=== PATIENT | male | born 1955 | race African-American/Black ===

== ENCOUNTER 2021-11-23 15:12 | Inpatient (IN) | payer OTHER, BC ==
[2021-11-23] MEDS ORDERED: ACETAMINOPHEN 325 MG TABLET (FP) PO PRN ×3 (19:33→20:05)
[2021-11-23] MEDS ORDERED: BISMUTH SUBSALICYLATE 524 MG/30 ML PO PRN ×2 (19:33→20:05)
[2021-11-23] MEDS ORDERED: NICOTINE 10 MG CARTRIDGE (INHALER) IH PRN ×2 (19:33→20:05)
[2021-11-23] MEDS ORDERED: METHOCARBAMOL 500 MG TABLET PO PRN ×2 (19:33→20:05)
[2021-11-23] MEDS ORDERED: BENZOCAINE/MENTHOL (CHLORASEPTIC ) LOZENGE MM PRN ×2 (19:33→20:05)
[2021-11-23] MEDS ORDERED: MAGNESIUM HYDROX 2400MG/30ML ORAL SUSPENSION 30 ML CUP PO PRN ×2 (19:33→20:05)
[2021-11-23] MEDS ORDERED: MAG HYDROX/AL HYDROX/SIMETH 30 ML UNIT-DOSE CUP PO PRN ×2 (19:33→20:05)
[2021-11-23] MEDS ORDERED: chlordiazePOXIDE HCL 25 MG CAPSULE PO PRN ×2 (19:33→20:10)
[2021-11-23] MEDS ORDERED: IBUPROFEN 600 MG TABLET (FP) PO PRN (19:33)
[2021-11-23] MEDS ORDERED: IBUPROFEN 400 MG TABLET (FP) PO PRN (19:33)
[2021-11-23] MEDS ORDERED: MAGNESIUM CITRATE 300 ML BOTTLE PO PRN ×2 (19:33→20:05)
[2021-11-23] MEDS ORDERED: DICYCLOMINE HCL 10 MG CAPSULE PO PRN ×2 (19:33→20:05)
[2021-11-23] MEDS ORDERED: chlordiazePOXIDE HCL 25 MG CAPSULE PO ONE ×2 (19:33→20:10)
[2021-11-23] MEDS ORDERED: ONDANSETRON *ODT* 4 MG TABLET SL PRN ×2 (19:33→20:05)
[2021-11-23] MEDS ORDERED: NICOTINE POLACRILEX 2 MG GUM BUC PRN ×2 (19:33→20:05)
[2021-11-23] MEDS ORDERED: LOPERAMIDE HCL 2 MG CAPSULE PO PRN ×2 (19:33→20:05)
[2021-11-23] MEDS ORDERED: PRENATAL VITAMINS W/ FOLIC ACID TABLET (FP) PO SCH (19:45)
[2021-11-23 19:47] VITALS: BMI 24.9
[2021-11-23] MEDS: PRENATAL VITAMINS W/ FOLIC ACID TABLET (FP) PO SCH (20:48)
[2021-11-23] MEDS ORDERED: MELATONIN 5 MG TABLETS PO SCH (22:00)
[2021-11-23] MEDS ORDERED: hydrOXYzine PAMOATE 25 MG CAPSULE (FP) PO SCH (22:00)
[2021-11-23] MEDS ORDERED: THIAMINE HCL 100 MG TABLET (FP) PO SCH (22:00)
[2021-11-23] MEDS ORDERED: chlordiazePOXIDE HCL 25 MG CAPSULE PO SCH (23:00)
[2021-11-23] MEDS: chlordiazePOXIDE HCL 25 MG CAPSULE PO SCH (23:15)
[2021-11-23] MEDS: MELATONIN 5 MG TABLETS PO SCH (23:16)
[2021-11-23] MEDS: THIAMINE HCL 100 MG TABLET (FP) PO SCH (23:16)
[2021-11-23] MEDS: hydrOXYzine PAMOATE 25 MG CAPSULE (FP) PO SCH (23:16)
[2021-11-24] MEDS: chlordiazePOXIDE HCL 25 MG CAPSULE PO SCH ×4 (06:19→22:26)
[2021-11-24] MEDS: hydrOXYzine PAMOATE 25 MG CAPSULE (FP) PO SCH ×5 (06:20→22:25)
[2021-11-24] MEDS ORDERED: NICOTINE 7 MG/24 HOURS TOPICAL PATCH TD SCH (10:00)
[2021-11-24 10:29] LABS: ALBUMIN 2.6 g/dl (3.4-5.0); CALCIUM 8.5 mg/dL (8.5-10.1)
[2021-11-24 10:30] LABS: BLOOD UREA NITROGEN 13.6 mg/dL (7-18)
[2021-11-24 10:33] LABS: CREATININE 0.9 mg/dL (0.55-1.3)
[2021-11-24 10:34] LABS: BILIRUBIN,TOTAL 1.3 mg/dL (0.2-1); TOT PROT 6.3 g/dl (6.4-8.2)
[2021-11-24] MEDS: PRENATAL VITAMINS W/ FOLIC ACID TABLET (FP) PO SCH (10:42)
[2021-11-24] MEDS: NICOTINE 7 MG/24 HOURS TOPICAL PATCH TD SCH (10:43)
[2021-11-24 10:49] LABS: HEMOGLOBIN 10.9 GM/dL (11.7-16.9); MCHC 32.5 g/dl (32.0-35.9)
[2021-11-24 10:51] LABS: HEMATOCRIT 33.5 % (35.4-49); MEAN CELL VOLUME 79.9 fl (80-96); MEAN PLT VOLUME 8.5 fl (7.5-11.1); PLATELET COUNT 228 10^3/uL (134-434); WHITE BLOOD COUNT 6.4 K/mm3 (4.0-10.0)
[2021-11-24] MEDS ORDERED: POTASSIUM CHLORIDE ORAL LIQUID 20 MEQ/15 ML PO ONE ×2 (11:30→15:30)
[2021-11-24] MEDS: IBUPROFEN 600 MG TABLET (FP) PO PRN ×2 (15:52→22:26)
[2021-11-24] MEDS: MELATONIN 5 MG TABLETS PO SCH (22:25)
[2021-11-24] MEDS: THIAMINE HCL 100 MG TABLET (FP) PO SCH (22:26)
[2021-11-25] MEDS ORDERED: chlordiazePOXIDE HCL 25 MG CAPSULE PO SCH (05:00)
[2021-11-25] MEDS: chlordiazePOXIDE HCL 25 MG CAPSULE PO SCH ×4 (05:35→22:52)
[2021-11-25] MEDS: hydrOXYzine PAMOATE 25 MG CAPSULE (FP) PO SCH ×6 (05:36→23:16)
[2021-11-25] MEDS: NICOTINE 7 MG/24 HOURS TOPICAL PATCH TD SCH (09:42)
[2021-11-25] MEDS: PRENATAL VITAMINS W/ FOLIC ACID TABLET (FP) PO SCH (09:43)
[2021-11-25] MEDS: IBUPROFEN 600 MG TABLET (FP) PO PRN (10:01)
[2021-11-25] MEDS: MELATONIN 5 MG TABLETS PO SCH (23:16)
[2021-11-25] MEDS: THIAMINE HCL 100 MG TABLET (FP) PO SCH (23:18)
[2021-11-26] MEDS ORDERED: chlordiazePOXIDE HCL 10 MG CAPSULE PO PRN ×2
[2021-11-26] MEDS ORDERED: chlordiazePOXIDE HCL 10 MG CAPSULE PO SCH (05:00)
[2021-11-26] MEDS: chlordiazePOXIDE HCL 10 MG CAPSULE PO SCH ×4 (08:07→22:46)
[2021-11-26] MEDS: hydrOXYzine PAMOATE 25 MG CAPSULE (FP) PO SCH ×5 (08:07→23:15)
[2021-11-26] MEDS: PRENATAL VITAMINS W/ FOLIC ACID TABLET (FP) PO SCH (10:39)
[2021-11-26] MEDS: NICOTINE 7 MG/24 HOURS TOPICAL PATCH TD SCH (10:39)
[2021-11-26] MEDS: ACETAMINOPHEN 325 MG TABLET (FP) PO PRN (22:49)
[2021-11-26] MEDS: THIAMINE HCL 100 MG TABLET (FP) PO SCH (23:15)
[2021-11-26] MEDS: MELATONIN 5 MG TABLETS PO SCH (23:15)
[2021-11-27] MEDS ORDERED: chlordiazePOXIDE HCL 10 MG CAPSULE PO SCH (05:00)
[2021-11-27] MEDS: hydrOXYzine PAMOATE 25 MG CAPSULE (FP) PO SCH ×4 (06:10→18:45)
[2021-11-27] MEDS: chlordiazePOXIDE HCL 10 MG CAPSULE PO SCH ×2 (07:20→18:45)
[2021-11-27] MEDS: PRENATAL VITAMINS W/ FOLIC ACID TABLET (FP) PO SCH (10:57)
[2021-11-27] MEDS: NICOTINE 7 MG/24 HOURS TOPICAL PATCH TD SCH (10:58)
[2021-11-28] MEDS: MELATONIN 5 MG TABLETS PO SCH ×2 (00:09→22:47)
[2021-11-28] MEDS: THIAMINE HCL 100 MG TABLET (FP) PO SCH ×2 (00:09→22:47)
[2021-11-28] MEDS: hydrOXYzine PAMOATE 25 MG CAPSULE (FP) PO SCH ×6 (00:09→22:47)
[2021-11-28] MEDS ORDERED: chlordiazePOXIDE HCL 10 MG CAPSULE PO ONE ×2 (05:00)
[2021-11-28] MEDS: NICOTINE 7 MG/24 HOURS TOPICAL PATCH TD SCH (10:47)
[2021-11-28] MEDS: PRENATAL VITAMINS W/ FOLIC ACID TABLET (FP) PO SCH (10:48)
[2021-11-29] MEDS: hydrOXYzine PAMOATE 25 MG CAPSULE (FP) PO SCH ×4 (07:46→19:04)
[2021-11-29] MEDS: NICOTINE 7 MG/24 HOURS TOPICAL PATCH TD SCH (10:42)
[2021-11-29] MEDS: PRENATAL VITAMINS W/ FOLIC ACID TABLET (FP) PO SCH (10:42)
[2021-11-29] MEDS: IBUPROFEN 600 MG TABLET (FP) PO PRN (10:44)
[2021-11-29] MEDS: MELATONIN 5 MG TABLETS PO SCH (23:28)
[2021-11-29] MEDS: THIAMINE HCL 100 MG TABLET (FP) PO SCH (23:28)
[2021-11-30] MEDS: PRENATAL VITAMINS W/ FOLIC ACID TABLET (FP) PO SCH (10:17)
[2021-11-30] MEDS: NICOTINE 7 MG/24 HOURS TOPICAL PATCH TD SCH (10:17)
[2021-11-30] MEDS: IBUPROFEN 600 MG TABLET (FP) PO PRN (11:46)
[2021-11-30] MEDS: MELATONIN 5 MG TABLETS PO SCH (23:18)
[2021-11-30] MEDS: THIAMINE HCL 100 MG TABLET (FP) PO SCH (23:18)
[2021-12-01] MEDS: NICOTINE 7 MG/24 HOURS TOPICAL PATCH TD SCH (10:37)
[2021-12-01] MEDS: PRENATAL VITAMINS W/ FOLIC ACID TABLET (FP) PO SCH (10:54)
[2021-12-01] MEDS: ACETAMINOPHEN 325 MG TABLET (FP) PO PRN (18:37)
[2021-12-01] MEDS: MELATONIN 5 MG TABLETS PO SCH (22:50)
[2021-12-01] MEDS: THIAMINE HCL 100 MG TABLET (FP) PO SCH (22:50)
[2021-12-02] MEDS: PRENATAL VITAMINS W/ FOLIC ACID TABLET (FP) PO SCH (10:26)
[2021-12-02] MEDS: NICOTINE 7 MG/24 HOURS TOPICAL PATCH TD SCH (10:27)
[2021-12-02] MEDS: IBUPROFEN 600 MG TABLET (FP) PO PRN (10:48)
[2021-12-02] MEDS: THIAMINE HCL 100 MG TABLET (FP) PO SCH (22:50)
[2021-12-02] MEDS: MELATONIN 5 MG TABLETS PO SCH (22:51)
[2021-12-03] MEDS: NICOTINE 7 MG/24 HOURS TOPICAL PATCH TD SCH (10:09)
[2021-12-03] MEDS: PRENATAL VITAMINS W/ FOLIC ACID TABLET (FP) PO SCH (10:09)
[2021-12-03] MEDS: IBUPROFEN 600 MG TABLET (FP) PO PRN (10:10)
[2021-12-03] MEDS: THIAMINE HCL 100 MG TABLET (FP) PO SCH (23:22)
[2021-12-03] MEDS: MELATONIN 5 MG TABLETS PO SCH (23:22)
[2021-12-04] MEDS: PRENATAL VITAMINS W/ FOLIC ACID TABLET (FP) PO SCH (10:07)
[2021-12-04] MEDS: IBUPROFEN 600 MG TABLET (FP) PO PRN (10:07)
[2021-12-04] MEDS: NICOTINE 7 MG/24 HOURS TOPICAL PATCH TD SCH (10:08)
[2021-12-04] MEDS: MELATONIN 5 MG TABLETS PO SCH (22:13)
[2021-12-04] MEDS: THIAMINE HCL 100 MG TABLET (FP) PO SCH (22:13)
[2021-12-05] MEDS: IBUPROFEN 600 MG TABLET (FP) PO PRN (10:10)
[2021-12-05] MEDS: PRENATAL VITAMINS W/ FOLIC ACID TABLET (FP) PO SCH (10:10)
[2021-12-05] MEDS: NICOTINE 7 MG/24 HOURS TOPICAL PATCH TD SCH (10:11)
[2021-12-05] MEDS: MELATONIN 5 MG TABLETS PO SCH (22:09)
[2021-12-05] MEDS: THIAMINE HCL 100 MG TABLET (FP) PO SCH (22:09)
[2021-12-05] MEDS: IBUPROFEN 400 MG TABLET (FP) PO PRN (22:10)
[2021-12-06] MEDS: NICOTINE 7 MG/24 HOURS TOPICAL PATCH TD SCH (10:24)
[2021-12-06] MEDS: PRENATAL VITAMINS W/ FOLIC ACID TABLET (FP) PO SCH (10:24)
[2021-12-06] MEDS: IBUPROFEN 400 MG TABLET (FP) PO PRN (10:25)
[2021-12-06] MEDS: THIAMINE HCL 100 MG TABLET (FP) PO SCH (22:22)
[2021-12-06] MEDS: MELATONIN 5 MG TABLETS PO SCH (22:22)
[2021-12-07] MEDS: PRENATAL VITAMINS W/ FOLIC ACID TABLET (FP) PO SCH (10:44)
[2021-12-07] MEDS: ACETAMINOPHEN 325 MG TABLET (FP) PO PRN ×2 (10:45→22:12)
[2021-12-07] MEDS: NICOTINE 7 MG/24 HOURS TOPICAL PATCH TD SCH (10:46)
[2021-12-07] MEDS: MELATONIN 5 MG TABLETS PO SCH (22:11)
[2021-12-07] MEDS: THIAMINE HCL 100 MG TABLET (FP) PO SCH (22:11)
[2021-12-08] MEDS: IBUPROFEN 600 MG TABLET (FP) PO PRN (10:12)
[2021-12-08] MEDS: PRENATAL VITAMINS W/ FOLIC ACID TABLET (FP) PO SCH (10:13)
[2021-12-08] MEDS: NICOTINE 7 MG/24 HOURS TOPICAL PATCH TD SCH (10:14)
[2021-12-08 18:25] LABS: URINE APPEARANCE CLEAR; URINE BILIRUBIN NEGATIVE (NEGATIVE); URINE COLOR YELLOW; URINE GLUCOSE (UA) NEGATIVE (NEGATIVE); URINE KETONE NEGATIVE (NEGATIVE); URINE LEUK ESTERASE NEGATIVE (NEGATIVE); URINE NITRITE NEGATIVE (NEGATIVE); URINE PROTEIN NEGATIVE (NEGATIVE); URINE UROBILINOGEN 0.2 mg/dL (0.2-1.0)
[2021-12-08] MEDS: THIAMINE HCL 100 MG TABLET (FP) PO SCH (23:08)
[2021-12-08] MEDS: MELATONIN 5 MG TABLETS PO SCH (23:08)
[2021-12-09] MEDS: PRENATAL VITAMINS W/ FOLIC ACID TABLET (FP) PO SCH (10:19)
[2021-12-09] MEDS: IBUPROFEN 600 MG TABLET (FP) PO PRN (10:19)
[2021-12-09] MEDS: NICOTINE 7 MG/24 HOURS TOPICAL PATCH TD SCH (10:20)
[2021-12-09] MEDS: ACETAMINOPHEN 325 MG TABLET (FP) PO PRN (20:19)
[2021-12-09] MEDS: MELATONIN 5 MG TABLETS PO SCH (22:24)
[2021-12-09] MEDS: THIAMINE HCL 100 MG TABLET (FP) PO SCH (22:24)
[2021-12-10] MEDS: NICOTINE 7 MG/24 HOURS TOPICAL PATCH TD SCH (10:13)
[2021-12-10] MEDS: PRENATAL VITAMINS W/ FOLIC ACID TABLET (FP) PO SCH (10:13)
[2021-12-10] MEDS: MELATONIN 5 MG TABLETS PO SCH (23:45)
[2021-12-10] MEDS: THIAMINE HCL 100 MG TABLET (FP) PO SCH (23:46)
[2021-12-11] MEDS: PRENATAL VITAMINS W/ FOLIC ACID TABLET (FP) PO SCH (10:09)
[2021-12-11] MEDS: NICOTINE 7 MG/24 HOURS TOPICAL PATCH TD SCH (10:11)
[2021-12-11] MEDS: IBUPROFEN 400 MG TABLET (FP) PO PRN (20:38)
[2021-12-11] MEDS: THIAMINE HCL 100 MG TABLET (FP) PO SCH (23:52)
[2021-12-11] MEDS: MELATONIN 5 MG TABLETS PO SCH (23:52)
[2021-12-12] MEDS: PRENATAL VITAMINS W/ FOLIC ACID TABLET (FP) PO SCH (10:11)
[2021-12-12] MEDS: NICOTINE 7 MG/24 HOURS TOPICAL PATCH TD SCH (10:11)
[2021-12-12] MEDS: ACETAMINOPHEN 325 MG TABLET (FP) PO PRN (10:11)
[2021-12-12] MEDS: THIAMINE HCL 100 MG TABLET (FP) PO SCH (22:36)
[2021-12-12] MEDS: MELATONIN 5 MG TABLETS PO SCH (22:36)
[2021-12-13] MEDS: ACETAMINOPHEN 325 MG TABLET (FP) PO PRN (10:22)
[2021-12-13] MEDS: PRENATAL VITAMINS W/ FOLIC ACID TABLET (FP) PO SCH (10:22)
[2021-12-13] MEDS: NICOTINE 7 MG/24 HOURS TOPICAL PATCH TD SCH (10:23)
[2021-12-13] MEDS: THIAMINE HCL 100 MG TABLET (FP) PO SCH (23:46)
[2021-12-13] MEDS: MELATONIN 5 MG TABLETS PO SCH (23:46)
[2021-12-14] MEDS: IBUPROFEN 600 MG TABLET (FP) PO PRN ×2 (10:15→22:39)
[2021-12-14] MEDS: PRENATAL VITAMINS W/ FOLIC ACID TABLET (FP) PO SCH (10:15)
[2021-12-14] MEDS: NICOTINE 7 MG/24 HOURS TOPICAL PATCH TD SCH (10:15)
[2021-12-14] MEDS: THIAMINE HCL 100 MG TABLET (FP) PO SCH (22:39)
[2021-12-14] MEDS: MELATONIN 5 MG TABLETS PO SCH (22:40)
[2021-12-15] MEDS: PRENATAL VITAMINS W/ FOLIC ACID TABLET (FP) PO SCH (10:11)
[2021-12-15] MEDS: NICOTINE 7 MG/24 HOURS TOPICAL PATCH TD SCH (10:11)
[2021-12-15] MEDS: THIAMINE HCL 100 MG TABLET (FP) PO SCH (22:36)
[2021-12-15] MEDS: MELATONIN 5 MG TABLETS PO SCH (22:36)
[2021-12-16] MEDS: IBUPROFEN 600 MG TABLET (FP) PO PRN (10:52)
[2021-12-16] MEDS: PRENATAL VITAMINS W/ FOLIC ACID TABLET (FP) PO SCH (10:52)
[2021-12-16] MEDS: NICOTINE 7 MG/24 HOURS TOPICAL PATCH TD SCH (10:54)
[2021-12-16] MEDS: MELATONIN 5 MG TABLETS PO SCH (22:39)
[2021-12-16] MEDS: THIAMINE HCL 100 MG TABLET (FP) PO SCH (22:39)
[2021-12-17] MEDS: NICOTINE 7 MG/24 HOURS TOPICAL PATCH TD SCH ×2 (09:42→10:10)
[2021-12-17] MEDS: PRENATAL VITAMINS W/ FOLIC ACID TABLET (FP) PO SCH (09:42)
[2021-12-17] MEDS: ACETAMINOPHEN 325 MG TABLET (FP) PO PRN (14:40)
[2021-12-17] MEDS: MELATONIN 5 MG TABLETS PO SCH (22:23)
[2021-12-17] MEDS: THIAMINE HCL 100 MG TABLET (FP) PO SCH (22:23)
[2021-12-17] MEDS: TOBRAMYCIN 0.3% OPHTH SOLN 5 ML BOTTLE OU SCH (22:24)
[2021-12-18] MEDS: TOBRAMYCIN 0.3% OPHTH SOLN 5 ML BOTTLE OU SCH ×3 (07:18→22:55)
[2021-12-18] MEDS: PRENATAL VITAMINS W/ FOLIC ACID TABLET (FP) PO SCH (09:30)
[2021-12-18] MEDS: NICOTINE 7 MG/24 HOURS TOPICAL PATCH TD SCH (09:30)
[2021-12-18] MEDS: ACETAMINOPHEN 325 MG TABLET (FP) PO PRN (09:31)
[2021-12-18] MEDS: MELATONIN 5 MG TABLETS PO SCH (22:55)
[2021-12-18] MEDS: THIAMINE HCL 100 MG TABLET (FP) PO SCH (22:55)
[2021-12-19] MEDS: TOBRAMYCIN 0.3% OPHTH SOLN 5 ML BOTTLE OU SCH ×3 (06:07→22:20)
[2021-12-19] MEDS: IBUPROFEN 400 MG TABLET (FP) PO PRN (10:25)
[2021-12-19] MEDS: NICOTINE 7 MG/24 HOURS TOPICAL PATCH TD SCH (10:25)
[2021-12-19] MEDS: PRENATAL VITAMINS W/ FOLIC ACID TABLET (FP) PO SCH (10:25)
[2021-12-19] MEDS: MELATONIN 5 MG TABLETS PO SCH (22:19)
[2021-12-19] MEDS: THIAMINE HCL 100 MG TABLET (FP) PO SCH (22:19)
[2021-12-20] MEDS: TOBRAMYCIN 0.3% OPHTH SOLN 5 ML BOTTLE OU SCH ×3 (06:10→23:01)
[2021-12-20] MEDS: IBUPROFEN 600 MG TABLET (FP) PO PRN (10:27)
[2021-12-20] MEDS: PRENATAL VITAMINS W/ FOLIC ACID TABLET (FP) PO SCH (10:27)
[2021-12-20] MEDS: NICOTINE 7 MG/24 HOURS TOPICAL PATCH TD SCH (10:27)
[2021-12-20] MEDS: MELATONIN 5 MG TABLETS PO SCH (23:01)
[2021-12-20] MEDS: THIAMINE HCL 100 MG TABLET (FP) PO SCH (23:01)
[2021-12-21] MEDS: TOBRAMYCIN 0.3% OPHTH SOLN 5 ML BOTTLE OU SCH ×3 (06:00→22:39)
[2021-12-21] MEDS: PRENATAL VITAMINS W/ FOLIC ACID TABLET (FP) PO SCH (11:00)
[2021-12-21] MEDS: ACETAMINOPHEN 325 MG TABLET (FP) PO PRN (11:01)
[2021-12-21] MEDS: NICOTINE 7 MG/24 HOURS TOPICAL PATCH TD SCH (11:02)
[2021-12-21] MEDS: MELATONIN 5 MG TABLETS PO SCH (22:38)
[2021-12-21] MEDS: THIAMINE HCL 100 MG TABLET (FP) PO SCH (22:38)
[2021-12-22] MEDS: TOBRAMYCIN 0.3% OPHTH SOLN 5 ML BOTTLE OU SCH ×3 (05:52→23:14)
[2021-12-22] MEDS: ACETAMINOPHEN 325 MG TABLET (FP) PO PRN (09:29)
[2021-12-22] MEDS: NICOTINE 7 MG/24 HOURS TOPICAL PATCH TD SCH (09:29)
[2021-12-22] MEDS: PRENATAL VITAMINS W/ FOLIC ACID TABLET (FP) PO SCH (09:29)
[2021-12-22] MEDS: MELATONIN 5 MG TABLETS PO SCH (23:14)
[2021-12-22] MEDS: THIAMINE HCL 100 MG TABLET (FP) PO SCH (23:14)
[2021-12-23] MEDS: TOBRAMYCIN 0.3% OPHTH SOLN 5 ML BOTTLE OU SCH ×3 (05:53→23:18)
[2021-12-23] MEDS: NICOTINE 7 MG/24 HOURS TOPICAL PATCH TD SCH (10:24)
[2021-12-23] MEDS: PRENATAL VITAMINS W/ FOLIC ACID TABLET (FP) PO SCH (10:24)
[2021-12-23] MEDS: IBUPROFEN 600 MG TABLET (FP) PO PRN (10:24)
[2021-12-23 15:37] LABS: BLOOD UREA NITROGEN 10.2 mg/dL (7-18); CALCIUM 8.9 mg/dL (8.5-10.1)
[2021-12-23 15:38] LABS: ALBUMIN 3.3 g/dl (3.4-5.0)
[2021-12-23 15:41] LABS: CREATININE 0.9 mg/dL (0.55-1.3)
[2021-12-23 15:42] LABS: BILIRUBIN,TOTAL 0.6 mg/dL (0.2-1); TOT PROT 7.4 g/dl (6.4-8.2)
[2021-12-23] MEDS: THIAMINE HCL 100 MG TABLET (FP) PO SCH (23:18)
[2021-12-23] MEDS: MELATONIN 5 MG TABLETS PO SCH (23:27)
[2021-12-24] MEDS: TOBRAMYCIN 0.3% OPHTH SOLN 5 ML BOTTLE OU SCH ×3 (06:06→23:22)
[2021-12-24] MEDS: PRENATAL VITAMINS W/ FOLIC ACID TABLET (FP) PO SCH (10:54)
[2021-12-24] MEDS: ACETAMINOPHEN 325 MG TABLET (FP) PO PRN (10:55)
[2021-12-24] MEDS: NICOTINE 7 MG/24 HOURS TOPICAL PATCH TD SCH (10:56)
[2021-12-24] MEDS: THIAMINE HCL 100 MG TABLET (FP) PO SCH (22:48)
[2021-12-24] MEDS: MELATONIN 5 MG TABLETS PO SCH (22:48)
[2021-12-25] MEDS: TOBRAMYCIN 0.3% OPHTH SOLN 5 ML BOTTLE OU SCH ×3 (06:19→23:32)
[2021-12-25] MEDS: PRENATAL VITAMINS W/ FOLIC ACID TABLET (FP) PO SCH (10:15)
[2021-12-25] MEDS: IBUPROFEN 600 MG TABLET (FP) PO PRN (10:15)
[2021-12-25] MEDS: NICOTINE 7 MG/24 HOURS TOPICAL PATCH TD SCH (10:16)
[2021-12-25] MEDS: THIAMINE HCL 100 MG TABLET (FP) PO SCH (23:32)
[2021-12-25] MEDS: MELATONIN 5 MG TABLETS PO SCH (23:32)
[2021-12-26] MEDS: TOBRAMYCIN 0.3% OPHTH SOLN 5 ML BOTTLE OU SCH ×3 (06:20→23:22)
[2021-12-26] MEDS: PRENATAL VITAMINS W/ FOLIC ACID TABLET (FP) PO SCH (10:21)
[2021-12-26] MEDS: ACETAMINOPHEN 325 MG TABLET (FP) PO PRN (10:21)
[2021-12-26] MEDS: NICOTINE 7 MG/24 HOURS TOPICAL PATCH TD SCH (10:21)
[2021-12-26] MEDS: MELATONIN 5 MG TABLETS PO SCH (23:22)
[2021-12-26] MEDS: THIAMINE HCL 100 MG TABLET (FP) PO SCH (23:22)
[2021-12-27] MEDS: TOBRAMYCIN 0.3% OPHTH SOLN 5 ML BOTTLE OU SCH ×3 (07:06→22:46)
[2021-12-27] MEDS: IBUPROFEN 600 MG TABLET (FP) PO PRN (10:22)
[2021-12-27] MEDS: PRENATAL VITAMINS W/ FOLIC ACID TABLET (FP) PO SCH (10:23)
[2021-12-27] MEDS: NICOTINE 7 MG/24 HOURS TOPICAL PATCH TD SCH (10:23)
[2021-12-27] MEDS: MELATONIN 5 MG TABLETS PO SCH (22:45)
[2021-12-27] MEDS: THIAMINE HCL 100 MG TABLET (FP) PO SCH (22:45)
[2021-12-28] MEDS: TOBRAMYCIN 0.3% OPHTH SOLN 5 ML BOTTLE OU SCH ×3 (06:38→22:06)
[2021-12-28] MEDS: IBUPROFEN 600 MG TABLET (FP) PO PRN (10:28)
[2021-12-28] MEDS: PRENATAL VITAMINS W/ FOLIC ACID TABLET (FP) PO SCH (10:28)
[2021-12-28] MEDS: NICOTINE 7 MG/24 HOURS TOPICAL PATCH TD SCH (10:29)
[2021-12-28] MEDS: MELATONIN 5 MG TABLETS PO SCH (22:06)
[2021-12-28] MEDS: THIAMINE HCL 100 MG TABLET (FP) PO SCH (22:06)
[2021-12-29] MEDS: TOBRAMYCIN 0.3% OPHTH SOLN 5 ML BOTTLE OU SCH ×2 (06:02→22:35)
[2021-12-29] MEDS: IBUPROFEN 600 MG TABLET (FP) PO PRN (10:22)
[2021-12-29] MEDS: PRENATAL VITAMINS W/ FOLIC ACID TABLET (FP) PO SCH (10:22)
[2021-12-29] MEDS: NICOTINE 7 MG/24 HOURS TOPICAL PATCH TD SCH (10:23)
[2021-12-29] MEDS: MELATONIN 5 MG TABLETS PO SCH (22:35)
[2021-12-29] MEDS: THIAMINE HCL 100 MG TABLET (FP) PO SCH (22:35)
[2021-12-30 01:15] VITALS: BP 134/78; PULSE 80; TEMP 97.7
[2021-12-30 01:22] VITALS: RESP 16
== END 2021-12-30 01:12 | DRG 897 ==
LOC: YASAS 15:12 → Y6N 20:02 → UNDODISIN 12-29 10:26
PROVIDERS: ADMIT Allergy & Immunology; ATTEND Surgery
PROC: HZ2ZZZZ Detoxification Services for Substance Abuse Treatment (ICD-10-PCS; principal; 2021-11-23)
DX: F10.230 Alcohol dependence with withdrawal, uncomplicated (principal); F14.20 Cocaine dependence, uncomplicated; E46 Unspecified protein-calorie malnutrition; F12.20 Cannabis dependence, uncomplicated; F17.210 Nicotine dependence, cigarettes, uncomplicated; E80.6 Other disorders of bilirubin metabolism; D64.9 Anemia, unspecified; M17.0 Bilateral primary osteoarthritis of knee; H10.32 Unspecified acute conjunctivitis, left eye; M62.562 Muscle wasting and atrophy, not elsewhere classified, left lower leg; M62.561 Muscle wasting and atrophy, not elsewhere classified, right lower leg; Z99.89 Dependence on other enabling machines and devices; Z59.00 Homelessness unspecified
CPT/HCPCS: 36415; 73564-TC-LT-FY; 73630-TC-LT; 80053; 81003; 82607; 82728; 82746; 82962; 83540; 83550; 84132; 85027; 86780; 93005; 93010; 97116-GP; 97162-GP; C9803-CS; U0003; U0005